=== PATIENT | female | born 1995 | race Two or more races ===

== ENCOUNTER 2019-02-01 21:53 | Emergency (ER) | payer MEDICAID ==
[~2019-02-01] VITALS: Ht 177.8 cm; Wt 97.1 kg
[2019-02-02] MEDS ORDERED: SODIUM CHLORIDE 0.9% 1,000 ML IV ONE (00:04)
[2019-02-02 00:25] LABS: BASOPHILS % 0.2 % (0.0-2.0); HEMATOCRIT. 37.5 % (36.0-48.0); HEMOGLOBIN. 12.5 g/dL (12.0-16.0); LYMPHOCYTES % 10.9 % (20.0-50.0); MEAN CORPUSCULAR HEMOGLOBIN 26.5 pg (28.0-32.0); MEAN CORPUSCULAR VOLUME 79.6 fL (81.0-99.0); MEAN PLATELET VOLUME 7.7 fl (7.4-10.4); MONOCYTES % 5.9 % (2.0-8.0); PLATELET 223 x1000/uL (130-400); RED BLOOD CELL COUNT 4.72 mill/uL (4.2-5.4); RED CELL DISTRIBUTION WIDTH 16.2 % (11.6-14.6)
[2019-02-02 00:30] LABS: CHLORIDE 107 mEq/L (98-107)
[2019-02-02 01:36] LABS: CLARITY URINE CLEAR (CLEAR); COLOR URINE YELLOW (YELLOW); KETONES URINE 2+ (NEGATIVE); LEUKOCYTE ESTERASE URINE 1+ (NEGATIVE); NITRITE URINE NEGATIVE (NEGATIVE); OCCULT BLOOD URINE NEGATIVE (NEGATIVE); PROTEIN URINE NEGATIVE (NEGATIVE); SPECIFIC GRAVITY URINE 1.011 (1.005-1.030); UROBILINOGEN URINE 0.2 E.U./dL (0.2-1.0)
[2019-02-02 03:04] VITALS: BP 128/75
== END 2019-02-02 03:06 | disposition home or self-care (01) ==
LOC: ER 21:53
DX: O23.42 Unspecified infection of urinary tract in pregnancy, second trimester (principal); O99.519 Diseases of the respiratory system complicating pregnancy, unspecified trimester; J06.9 Acute upper respiratory infection, unspecified; Z3A.15 15 weeks gestation of pregnancy
CPT/HCPCS: 36415; 80048; 81003; 81025; 85025; 99283; J7030; Z7610